=== PATIENT | male | born 1970 ===

== ENCOUNTER 2021-12-24 06:00 | Day surgery (SDC) | payer OTHER ==
[~2021-12-24 06:00] MED LIST: COZAAR100 MG PO; METFORMIN HCL500 M3 PO
== END 2021-12-24 12:10 | disposition home or self-care (01) ==
LOC: CIR.AMB 06:00 → AMB-ERCP 07:15 → CIR.AMB 07:15
PROVIDERS: ATTEND Urology
DX: N20.0 Calculus of kidney (principal)